=== PATIENT | male | born 1955 | race Caucasian/White ===

== ENCOUNTER 2022-06-23 10:31 | Emergency (ER) | payer MEDICAID ==
[~2022-06-23] VITALS: Ht 170.2 cm; Wt 98.4 kg
[2022-06-23 10:41] VITALS: BP 127/84
--- NOTE | 2022-06-23 10:45 | NUR ---
pt ambulated to bed 11 with walker
--- NOTE | 2022-06-23 10:50 | NUR ---
66M presents to ED with c/o right knee pain [id number]. Pt reports a constant, aching like, 10/10 nonradiating pain; seen and diagnosed February 2022 with clots and a cyst to right calf. Pt reports given declofenac with ketorolac for pain/inflammation with relief 1 month ago. Swelling noted upon assessment to right knee, -redness. Pt changed into gown, bed set to lowest position.
--- NOTE | 2022-06-23 11:17 | NUR ---
Xray at bedside.
--- NOTE | 2022-06-23 11:38 | NUR ---
Dr. Kim at bedside.
[2022-06-23] MEDS ORDERED: MORPHINE SULFATE 4 MG/ML SYR IM ONE (11:45)
[2022-06-23 13:08] LABS: BASOPHILS # (AUTO) 0.1 K/uL (0.00-0.22); BASOPHILS % (AUTO) 0.6 % (0.0-2.0); EOSINOPHILS % (AUTO) 0.4 % (0.0-4.0); HEMATOCRIT 34.1 % (36-52); HEMOGLOBIN 11.3 g/dL (12.0-18.0); LYMPHOCYTES # (AUTO) 1.6 K/uL (2.0-11.5); LYMPHOCYTES % (AUTO) 14.1 % (20.5-51.1); MEAN CORPUSCULAR HEMOGLOBIN 31 pg (27-31); MEAN CORPUSCULAR HGB CONC 33 g/dL (33-37); MONOCYTES # (AUTO) 1.3 K/uL (0.8-1.0); MONOCYTES % (AUTO) 11.8 % (1.7-9.3); NEUTROPHILS # (AUTO) 8.2 K/uL (1.8-7.7); NEUTROPHILS % (AUTO) 73.1 % (42.2-75.2); PLATELET COUNT (AUTO) 265 K/uL (140-450); RED BLOOD CELL COUNT(AUTO) 3.71 MIL/uL (4.20-6.10); RED CELL DISTRIBUTION WIDTH 14.3 % (11.6-13.7); WHITE BLOOD COUNT (AUTO) 11.2 K/uL (4.8-10.8)
[2022-06-23 13:29] LABS: ALBUMIN 3.9 g/dL (3.4-5.0); ANION GAP 11.8 (8-16); CARBON DIOXIDE 29.2 mmol/L (21-32); CREATININE 1.4 mg/dL (0.6-1.3); TOTAL BILIRUBIN 0.5 mg/dL (0.0-1.0)
[2022-06-23 13:37] VITALS: BP 88/56
[2022-06-23] MEDS ORDERED: KETOROLAC 30 MG/ML VIAL IM ONE (13:45)
[2022-06-23] MEDS ORDERED: ACET-10509 PO (14:00)
--- NOTE | 2022-06-23 14:03 | NUR ---
JEMIMA WRAP APPLIED TO R KNEE + CMS
--- NOTE | 2022-06-23 14:20 | NUR ---
Patient discharged with v/s stable. Written and verbal after care instructions about arthritis and acute knee pain given and explained. Patient alert, oriented and verbalized understanding of instructions. Ambulatory with steady gait. All questions addressed prior to discharge. ID band removed. Patient advised to follow up with PMD. Rx of Acetaminophen given. Patient educated on indication of medication including possible reaction and side effects. Opportunity to ask questions provided and answered.
== END 2022-06-23 14:20 | disposition home or self-care (01) ==
LOC: MED 10:31
DX: M25.561 Pain in right knee (principal); M13.861 Other specified arthritis, right knee; I10 Essential (primary) hypertension; Z79.899 Other long term (current) drug therapy
CPT/HCPCS: 36415; 73562; 80053; 85025; 85651; 86140; 96372; 99284; J1885; J2270

== ENCOUNTER 2022-09-09 06:23 | Emergency (ER) | payer MEDICAID ==
[~2022-09-09] VITALS: Ht 177.8 cm; Wt 95.3 kg
[~2022-09-09 06:23] MED LIST: ACET-10509 PO
--- NOTE | 2022-09-09 06:28 | NUR ---
PT TAKEN TO BED 12
[2022-09-09 06:32] VITALS: BP 112/65
[2022-09-09] MEDS ORDERED: MORPHINE SULFATE 10 MG/ML VIAL IVP ONE (06:55)
--- NOTE | 2022-09-09 07:05 | NUR ---
per dr lauren cota to give morphine with pt bp.
--- NOTE | 2022-09-09 07:14 | NUR ---
REPORT GIVEN TO MARIANNA CHOW
--- NOTE | 2022-09-09 07:20 | NUR ---
PT TAKEN TO CT VIA KIANNA
[2022-09-09 07:52] LABS: BASOPHILS # (AUTO) 0.1 K/uL (0.00-0.22); BASOPHILS % (AUTO) 0.8 % (0.0-2.0); EOSINOPHILS % (AUTO) 0.2 % (0.0-4.0); HEMATOCRIT 33.1 % (36-52); LYMPHOCYTES # (AUTO) 1.1 K/uL (2.0-11.5); MEAN CORPUSCULAR HEMOGLOBIN 30 pg (27-31); MEAN CORPUSCULAR HGB CONC 33 g/dL (33-37); MEAN CORPUSCULAR VOLUME 91.2 fL (80-94); MONOCYTES # (AUTO) 1.3 K/uL (0.8-1.0); MONOCYTES % (AUTO) 12.3 % (1.7-9.3); NEUTROPHILS # (AUTO) 8.3 K/uL (1.8-7.7); NEUTROPHILS % (AUTO) 76.7 % (42.2-75.2); PLATELET COUNT (AUTO) 252 K/uL (140-450); RED BLOOD CELL COUNT(AUTO) 3.63 MIL/uL (4.20-6.10); RED CELL DISTRIBUTION WIDTH 15.4 % (11.6-13.7); WHITE BLOOD COUNT (AUTO) 10.9 K/uL (4.8-10.8)
[2022-09-09 08:05] LABS: ALBUMIN 3.4 g/dL (3.4-5.0); ANION GAP 12.5 (8-16); CARBON DIOXIDE 26.5 mmol/L (21-32); CREATININE 1.7 mg/dL (0.6-1.3); TOTAL BILIRUBIN 0.9 mg/dL (0.0-1.0)
[2022-09-09 08:27] VITALS: BP 103/73
[2022-09-09] MEDS ORDERED: NACL 0.9% 1,000 ML IV ONE (08:35)
[2022-09-09] MEDS ORDERED: KETOROLAC 15 MG/ML VIAL IVP ONE (08:35)
--- NOTE | 2022-09-09 08:50 | NUR ---
URINAL HANDED TO PT
--- NOTE | 2022-09-09 09:35 | NUR ---
URINE WALKED AND HANDED TO PRAKASH
[2022-09-09 09:53] LABS: APPEARANCE,URINE CLEAR (CLEAR); BILIRUBIN,URINE NEGATIVE (NEGATIVE); BLOOD, URINE NEGATIVE (NEGATIVE); COLOR,URINE YELLOW (YELLOW); LEUKOCYTE ESTERASE ,URINE NEGATIVE (NEGATIVE); NITRITE, URINE NEGATIVE (NEGATIVE); UGLUCOSE NEGATIVE (NEGATIVE)
[2022-09-09] MEDS ORDERED: DICL20GE TP (10:26)
[2022-09-09] MEDS ORDERED: ACET-10509 PO (10:26)
--- NOTE | 2022-09-09 10:45 | NUR ---
Patient discharged with v/s stable. Written and verbal after care instructions ABOUT ABD PAIN given and explained. Patient alert, oriented and verbalized understanding of instructions. Ambulatory with steady gait. All questions addressed prior to discharge. ID band removed. Patient advised to follow up with PMD. Rx of DICLOFENAC, ACETAMINOPHEN given. Patient educated on indication of medication including possible reaction and side effects. Opportunity to ask questions provided and answered.
== END 2022-09-09 10:38 | disposition home or self-care (01) ==
LOC: MED 06:23
DX: R10.31 Right lower quadrant pain (principal); M25.561 Pain in right knee; R11.0 Nausea; N18.9 Chronic kidney disease, unspecified; I10 Essential (primary) hypertension; Z79.899 Other long term (current) drug therapy
CPT/HCPCS: 36415; 74176; 76870; 80053; 81003; 83690; 85025; 96361; 96374; 96375; 99285; J1885; J2270; Q0092; J7030

== ENCOUNTER 2022-10-03 18:29 | Emergency (ER) | payer MEDICAID, OTHER ==
[~2022-10-03] VITALS: Ht 170.2 cm; Wt 96.6 kg
[~2022-10-03 18:29] MED LIST changes: +DICL20GE TP
[2022-10-03 19:06] VITALS: BP 104/66
[2022-10-03] MEDS ORDERED: KETOROLAC 30 MG/ML VIAL IM ONE (19:40)
[2022-10-03] MEDS ORDERED: ACET-10509 PO (20:19)
[2022-10-03] MEDS ORDERED: DICL20GE TOP (20:19)
[2022-10-03] MEDS ORDERED: ACETAMINOPHEN EXTRA STRENGTH 500 MG TAB PO ONE (20:20)
[2022-10-03] MEDS ORDERED: LIDOCAINE 5% 1 EA PATCH TP ONE (20:20)
[2022-10-03] MEDS ORDERED: LID5T TP (20:27)
[2022-10-03 20:40] VITALS: BP 104/66
--- NOTE | 2022-10-03 20:40 | NUR ---
Patient discharged with v/s stable. Written and verbal after care instructions given and explained. New rx tylenol and voltaren. Patient verbalized understanding. Ambulatory with steady gait. Accompanied by . All questions addressed prior to discharge. Advised to follow up with PMD.
== END 2022-10-03 20:40 | disposition home or self-care (01) ==
LOC: MED 18:29
DX: M17.0 Bilateral primary osteoarthritis of knee (principal); I10 Essential (primary) hypertension; Z87.448 Personal history of other diseases of urinary system; Z79.899 Other long term (current) drug therapy
CPT/HCPCS: 99283; J1885